=== PATIENT | male | born 1990 | race Caucasian/White ===

== ENCOUNTER 2019-03-02 21:20 | Emergency (ER) | payer SELFPAY ==
[2019-03-02 21:40] VITALS: BP 170/110; PULSE 107; RESP 18; TEMP 36.9; O2SAT 98; BMI 35.6
--- NOTE | 2019-03-02 22:42 | W.ED.SKABFB ---
HPI - Skin/Abscess/Foreign Bdy General: Chief complaint: Skin/Abscess/Foreign Body Stated complaint: Swollen arm Time Seen by Provider: 03/02/19 22:35 Source: patient Mode of arrival: ambulatory Limitations: no limitations History of Present Illness: HPI narrative: Patient comes in today with complaints of redness and swelling to the dorsal left forearm. Patient notes that the area started becoming red and swell about 2 days ago. Patient denies any fever. Patient appears well. Patient appears in mild pain. Patient does report history of IV drug use. Review of Systems General: Reports: 10 or more systems reviewed and unremarkable except in HPI and below Skin/Breast: Reports: redness and skin tenderness PFSH ED PFSH: Statuses (acute, chronic, etc) shown below reflect problem list status as previously entered and may not be historically accurate Social History Smoking and tobacco status: current every day smoker Physical Exam Const: COMMON NORMALS: no apparent distress and oriented x3 GENERAL APPEARANCE: cooperative HENMT: COMMON NORMALS: normocephalic, external ears normal, EAC's normal, TM's normal bilaterally and external nose normal HEAD & SCALP: normal to inspection and normocephalic FACE & SINUS: normal facial exam NOSE: external nose normal GENERAL EAR: hearing not grossly impaired EXTERNAL EAR: Yes external ears normal EXTERNAL AUDITORY CANAL: EAC's normal TYMPANIC MEMBRANE: TM's normal bilaterally MOUTH: oral and palatal mucosa normal THROAT: posterior oropharynx normal Eye: COMMON NORMALS: PERRL and EOMs intact bilaterally PUPIL: Yes PERRL Neck/C-Spine: COMMON NORMALS: full ROM and no lymphadenopathy Lymph: LYMPHATIC: no lymphedema noted Chest: COMMONS NORMALS: inspection of chest normal and palpation of chest normal Resp: COMMON NORMALS: normal respiratory effort and clear to auscultation bilaterally AUSCULTATION: clear to auscultation bilaterally Cardio: COMMON NORMALS: regular rate and regular rhythm RATE: regular rate RHYTHM: regular rhythm GI: COMMON NORMALS: normal to inspection, nondistended, normoactive bowel sounds and non-tender : COMMON NORMALS: Yes no CVA tenderness BLADDER/KIDNEY EXAM: Yes no CVA tenderness Back/Pelvis: COMMON NORMALS: no CVA tenderness and thoracic and lumbar spine normal to inspection Extremity: GENERAL: Yes edema (left forearm) LEFT UPPER EXTREMITY: Yes lower arm (redness and swelling to forearm, no abscess at this time noted) Neuro: COMMON NORMALS: oriented x3, moves all extremities and no focal motor deficits Psych: COMMON NORMALS: mental status grossly normal and cooperative Skin: COMMON NORMALS: no rashes or lesions noted GENERAL SKIN EXAM: no rashes or lesions noted Course Vital Signs: Vital signs: Vital Signs Temperature 98.5 F 03/02/19 21:40 Pulse Rate 107 H 03/02/19 21:40 Respiratory Rate 18 03/02/19 21:40 Blood Pressure 170/110 03/02/19 21:40 Pulse Oximetry 98 03/02/19 21:40 MDM - Skin/Abscess/Foreign Bdy MDM Narrative: Medical decision making narrative: Patient comes in today with complaints of redness and swelling to the left forearm. On exam we note and area of significant redness and tenderness to the left dorsal forearm. Approximately 20 cm x 4 cm ovoid in shape. No central fluctuance is noted. Respirations are even lungs are clear to auscultation. No sign of injury is noted. Differential diagnosis includes cellulitis, abscess, DVT. Since the swelling only encompasses the dorsal aspect of the left forearm and redness with heat is noted to the area seems like cellulitis. At this time no abscess is present but may develop and will need to be monitored. Reviewed with patient recommendations for treatment with antibiotics. Patient will be prescribed oral antibiotics and will be started on medications in the emergency department. Patient reports understanding of care plan and need for follow-up. Discharge Plan Discharge Patient Disposition: Home, Self-Care Clinical Impression: Cellulitis Qualifiers: Site of cellulitis: extremity Site of cellulitis of extremity: upper extremity Laterality: left Qualified Code(s): L03.114 - Cellulitis of left upper limb Condition: Stable Prescriptions: New Bactrim DS 800-160 mg tablet 1 tab PO BID 7 Days Qty: 14 RF: 0 cephalexin 500 mg capsule 500 mg PO Q8H 7 Days Qty: 21 RF: 0 Discharge Orders: Discharge Order (Routine); Ordered 03/02/19 Ordered By: Orestes Whitten Discharge Diet: Usual diet Discharge Activity: Resume usual activity Patient Instructions: Cellulitis (ED) Activity Restrictions/Additional Instructions: Drink plenty of water with medications Acetaminophen and ibuprofen for pain Warm compresses to the area Activity as tolerated Should expect improvement over the next three days Return to ER for high fever or new concerns Coding Level of Care Code ED Senior [employer] Agent for Edith Anne
[2019-03-02] MEDS: cefTRIAXone 1,000 mg SDV 1000 MG IM (23:01)
[2019-03-02] MEDS: clindamycin 150 mg Capsule 300 MG PO (23:07)
[2019-03-02 23:10] VITALS: BP 142/78; PULSE 72; RESP 18; O2SAT 98
== END 2019-03-02 23:15 | disposition home or self-care (01) ==
PROVIDERS: Emergency Provider Nurse Practitioner Family
DX: L03.114 Cellulitis of left upper limb (principal); F17.210 Nicotine dependence, cigarettes, uncomplicated
CPT/HCPCS: 96372; 99281; J0696

== ENCOUNTER 2019-06-13 23:20 | Emergency (ER) | payer SELFPAY ==
[2019-06-13 23:23] VITALS: BP 125/91; PULSE 115; RESP 18; TEMP 36.7; O2SAT 98; BMI 33.6
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
[2019-06-13] MEDS: oxyCODONE-APAP 5-325 mg Tablet 2 TAB PO (23:56)
--- NOTE | 2019-06-14 00:34 | PC.NURSE ---
Knee immobilizer placed left knee per order. Good pulses noted pre and post placement. Teaching complete on home use.
[2019-06-14 00:40] VITALS: BP 126/74; PULSE 88; RESP 16; O2SAT 96
== END 2019-06-14 00:42 | disposition home or self-care (01) ==
PROVIDERS: Emergency Provider Emergency Medicine
DX: S83.412A Sprain of medial collateral ligament of left knee, initial encounter (principal); S00.83XA Contusion of other part of head, initial encounter; Y04.2XXA Assault by strike against or bumped into by another person, initial encounter; F17.210 Nicotine dependence, cigarettes, uncomplicated
CPT/HCPCS: 12345; 29530; 70450; 70486; 72125; 73562; 99281; 99283

== ENCOUNTER 2019-10-14 19:26 | Emergency (ER) | payer SELFPAY ==
[2019-10-14 19:43] VITALS: BP 137/87; PULSE 104; RESP 17; TEMP 36.9; O2SAT 99; BMI 33.5
--- NOTE | 2019-10-14 19:53 | W.ED.GENADLT ---
HPI - General Adult General: Chief complaint: General Medical Stated complaint: shoulder pain/ tingle finger/ throwing up Time Seen by Provider: 10/14/19 19:53 History of Present Illness: HPI narrative: Patient is a 29-year-old male who comes to the ED with right shoulder pain, blood in the urine and nausea/vomiting. Past surgical history of cholecystectomy. Patient said right shoulder pain started about 2 weeks ago and denies any injury or trauma to her right shoulder. He currently rates pain right shoulder a 7 out of 10. Patient also states that today he has had some dark red-tinged color to his urine. He also endorses having nausea, vomiting and decreased appetite for the past 2 days. Patient states that he has also had some white-colored stools for the past couple days as well. Denies any constipation or diarrhea or blood in the stool. Patient denies fever, chills, chest pain, shortness of breath, abdominal pain, dysuria, diarrhea or constipation. Patient did state that he abused alcohol in the past and also has a history of IV drug use. Associated symptoms: Reports nausea and vomiting; Deny chest pain, dyspnea, headache(s), rash or palpitations Review of Systems Const: Reports: change in appetite (decreased appetite); Denies: fever(s), chills or fatigue Eyes: Denies: change in vision or eye discomfort ENMT: Denies: throat pain, odynophagia, nasal discharge or nasal congestion Card: Denies: chest pain, palpitations, edema, swelling of feet/ankles, dyspnea on exertion or orthopnea Resp: Denies: dyspnea, productive cough or non-productive cough GI: Reports: nausea and vomiting; Denies: abdominal pain, diarrhea, constipation or hematochezia : Denies: flank pain, difficulty urinating, dysuria or hematuria Musc: Reports: extremity pain (right shoulder pain); Denies: neck pain, back pain or extremity swelling Skin/Breast: Denies: rash or new lesions Neuro: Denies: headache(s), numbness in extremities or weakness in extremities PFSH ED PFSH: Social History Smoking and tobacco status: current every day smoker Physical Exam Const: COMMON NORMALS: no acute distress, patient oriented x3 and alert GENERAL APPEARANCE: cooperative and comfortable HENMT: COMMON NORMALS: normocephalic HEAD & SCALP: normocephalic MOUTH: Normal oral and palatal mucosa present THROAT: posterior oropharynx normal and uvula midline Eye: COMMON NORMALS: Equal, round and reactive pupils present and conjunctivae normal CONJUNCTIVA: Yes conjunctivae normal PUPIL: Yes Equal, round and reactive pupils present OTHER: Signs of conjunctive icterus. Neck/C-Spine: COMMON NORMALS: supple GENERAL: Yes normal visual inspection Resp: COMMON NORMALS: normal respiratory effort, No retractions, No use of accessory muscles and clear to auscultation bilaterally AUSCULTATION: clear to auscultation bilaterally Cardio: COMMON NORMALS: regular rate, regular rhythm, S1 normal heart sound present, S2 normal heart sound present, No gallops present (Cardio), No clicks present (Cardio), No murmurs present (Cardio) and Peripheral pulses 2+ throughout RATE: regular rate RHYTHM: regular rhythm HEART SOUNDS: S1 normal heart sound present and S2 normal heart sound present PERIPHERAL PULSES: Peripheral pulses 2+ throughout GI: COMMON NORMALS: Normal to inspection, nondistended, normoactive bowel sounds present, Soft to palpation, non-tender and no masses INSPECTION: Yes central obesity PALPATION: Yes Soft to palpation : COMMON NORMALS: Yes no CVA tenderness BLADDER/KIDNEY EXAM: Yes no CVA tenderness Back/Pelvis: COMMON NORMALS: no CVA tenderness Extremity: COMMON NORMALS: normal to inspection, full ROM and no pedal edema NARRATIVE EXTREMITY EXAM: Patient has no visible deformity seen on right shoulder. Right shoulder is nontender upon palpation and he is full range of motion. Neuro: COMMON NORMALS: patient oriented x3 and moves all extremities SENSORIUM/ORIENTATION: Yes alert Skin: COMMON NORMALS: no rashes or lesions noted GENERAL SKIN EXAM: no rashes or lesions noted and dry skin Course Vital Signs: Vital signs: Vital Signs Temperature 98.5 F 10/14/19 19:43 Pulse Rate 90 10/14/19 23:41 Respiratory Rate 18 10/14/19 23:41 Blood Pressure 148/84 10/14/19 23:41 Pulse Oximetry 100 10/14/19 23:41 MDM - General Adult MDM Narrative: Medical decision making narrative: Patient is a 29-year-old male comes the ED with right shoulder pain, and nausea and vomiting. Right shoulder pain is nontraumatic and has progressed over the last 2 weeks. X-ray of right shoulder showed no acute fractures or findings. AST 815, ALT 2334 and alk phos 209. Patient has a history of alcohol abuse and IV drug use. Hepatitis panel was performed and hepatitis a and hepatitis C was reactive. CT of the abdomen showed no acute findings. Patient appears in no acute distress is no abdominal pain no visible signs of jaundice. Order was placed with case management for patient to be referred to Dr. Barros. Patient was discharged and told that case management will be contacting him in the next several days to set up an appointment with Dr. Barros. He was sent home with a prescription for Zofran to help with nausea. Return to ED precautions given. Patient understood and agreed with plan. Lab Data: Attestation: I reviewed the patient's lab results. Labs: Lab Results 10/14/19 10/14/19 10/14/19 Range/Units 20:29 20:29 20:29 WBC 6.3 (4.0-10.0) 10^3/ uL RBC 4.98 (4.1-5.3) 10^6/u L Hgb 14.4 (11.7-16.6) g/dL Hct 44.5 (42.0-52.0) % MCV 89.4 (80-94) fL MCH 28.9 (28.0-34.0) pg MCHC 32.4 (30.0-36.0) g/dL RDW 14.1 (12.1-15.1) % Plt Count 180 (130-400) 10^3/c mm MPV 11.5 H (7.4-10.4) fL Neut % (Auto) 55.9 % Lymph % (Auto) 34.5 % Alexander % (Auto) 5.8 % Eos % (Auto) 3.0 % Baso % (Auto) 0.5 % Neut # (Auto) 3.50 (1.8-7.7) 10^3/u L Lymph # (Auto) 2.2 (0.8-4.8) 10^3/u L Alexander # (Auto) 0.4 (0.2-0.9) 10^3/u L Eos # (Auto) 0.2 (0.0-0.8) 10^3/u L Baso # (Auto) 0.0 (0.0-0.1) 10^3/u L Nucleated RBC % (a uto) 0 % Nucleated RBCs # 0.0 /100WBC Sodium 135 L (136-145) mmol/L Potassium 3.9 (3.5-5.1) mmol/L Chloride 104 (98-107) mmol/L Carbon Dioxide 21 L (22-29) mmol/L Anion Gap 13.9 (5-19) BUN 11 (6-20) mg/dL Creatinine 0.6 L (0.7-1.2) mg/dL GFR Calculation 158.2 H (90-130) mL/min Glucose 147 H (65-115) mg/dL Calculated Osmolal ity 279 L (285-295) mOsm/k g Calcium 8.3 L (8.5-10.5) mg/dL Total Bilirubin 3.1 H (0.15-1.2) mg/dL AST 815 H (0-40) U/L ALT 2334 H (0-41) U/L Alkaline Phosphata se 209 H (40-130) IU/L Total Protein 7.9 (6.6-8.7) g/dL Albumin 3.5 (3.5-5.2) g/dL Globulin 4.4 (1.3-4.6) g/dL Urine Color (Yellow) Urine Appearance (CLEAR) Urine pH (5-7) Ur Specific Gravit y (1.005-1.030) Urine Protein (Negative) Urine Glucose (UA) (Normal) Urine Ketones (Negative) Urine Blood (Negative) Urine Nitrate (Negative) Urine Bilirubin (NEGATIVE) Urine Urobilinogen (Negative) mg/dL Ur Leukocyte Nu ase (Negative) Urine RBC (0-2) /hpf Urine WBC (0-5) /hpf Ur Squamous Epith Cells (0-5) Amorphous Sediment Urine Bacteria (NONE) Urine Mucus Ethyl Alcohol (0-10) mg/dL Hepatitis A IgM Ab Reactive H (Nonreactive) Hep Bs Antigen Non-reactive (Nonreactive) Hep Bs Antibody 3.5 (0-8.5) Hep B Core Total A b Non-reactive (Nonreactive) Hepatitis C Antibo dy Reactive H (Nonreactive) 10/14/19 10/14/19 Range/Units 20:29 20:33 WBC (4.0-10.0) 10^3/ uL RBC (4.1-5.3) 10^6/u L Hgb (11.7-16.6) g/dL Hct (42.0-52.0) % MCV (80-94) fL MCH (28.0-34.0) pg MCHC (30.0-36.0) g/dL RDW (12.1-15.1) % Plt Count (130-400) 10^3/c mm MPV (7.4-10.4) fL Neut % (Auto) % Lymph % (Auto) % Alexander % (Auto) % Eos % (Auto) % Baso % (Auto) % Neut # (Auto) (1.8-7.7) 10^3/u L Lymph # (Auto) (0.8-4.8) 10^3/u L Alexander # (Auto) (0.2-0.9) 10^3/u L Eos # (Auto) (0.0-0.8) 10^3/u L Baso # (Auto) (0.0-0.1) 10^3/u L Nucleated RBC % (a uto) % Nucleated RBCs # /100WBC Sodium (136-145) mmol/L Potassium (3.5-5.1) mmol/L Chloride (98-107) mmol/L Carbon Dioxide (22-29) mmol/L Anion Gap (5-19) BUN (6-20) mg/dL Creatinine (0.7-1.2) mg/dL GFR Calculation (90-130) mL/min Glucose (65-115) mg/dL Calculated Osmolal ity (285-295) mOsm/k g Calcium (8.5-10.5) mg/dL Total Bilirubin (0.15-1.2) mg/dL AST (0-40) U/L ALT (0-41) U/L Alkaline Phosphata se (40-130) IU/L Total Protein (6.6-8.7) g/dL Albumin (3.5-5.2) g/dL Globulin (1.3-4.6) g/dL Urine Color Dark yellow (Yellow) Urine Appearance Clear (CLEAR) Urine pH 5 (5-7) Ur Specific Gravit y 1.025 (1.005-1.030) Urine Protein Trace (Negative) Urine Glucose (UA) Norm (Normal) Urine Ketones Negative (Negative) Urine Blood Trace H (Negative) Urine Nitrate Negative (Negative) Urine Bilirubin 2+ H (NEGATIVE) Urine Urobilinogen 4 H (Negative) mg/dL Ur Leukocyte Nu ase Negative (Negative) Urine RBC Rare (0-2) /hpf Urine WBC 0-4 H (0-5) /hpf Ur Squamous Epith Cells 0-4 H (0-5) Amorphous Sediment Not Reportable Urine Bacteria 1+ H (NONE) Urine Mucus 2+ Ethyl Alcohol < 10 (0-10) mg/dL Hepatitis A IgM Ab (Nonreactive) Hep Bs Antigen (Nonreactive) Hep Bs Antibody (0-8.5) Hep B Core Total A b (Nonreactive) Hepatitis C Antibo dy (Nonreactive) Imaging Data^: Xray Ortho: Attestation: I personally reviewed and interpreted this imaging study as follows: My impression: Right shoulder x-ray?no acute fractures or findings. CT Abd/Pel: Attestation: I personally reviewed and interpreted this imaging study as follows: Radiologist's impression: [place] [address] CT Scan Report Signed Patient: Denzel Olivares Unit #: [id number] : 1990 Age/Sex: 29 / M ADM Date: 10/14/19 Loc: ER Room/Bed: Attending Dr: Ordering Provider/Ordering MD: Devyn Dong Date of Service: 10/14/19 Procedure(s): CT abdomen pelvis w con* [id number] Accession Number(s): [id number] Report Number: [id number] PROCEDURE INFORMATION: Exam: CT Abdomen And Pelvis With Contrast Exam date and time: 10/14/2019 9:29 PM Age: 29 years old Clinical indication: Nausea and vomiting; Prior surgery; Surgery type: Gb TECHNIQUE: Imaging protocol: Computed tomography of the abdomen and pelvis with intravenous contrast. Radiation optimization: All CT scans at this facility use at least one of these dose optimization techniques: automated exposure control; mA and/or kV adjustment per patient size (includes targeted exams where dose is matched to clinical indication); or iterative reconstruction. Contrast material: OMNI 300; Contrast volume: 95 ml; Contrast route: INTRAVENOUS (IV); COMPARISON: US gall bladder [id number] 04/07/2015 10:23 AM RADIATION DOSE METRICS: Total DLP (mGy-cm): 1751.53 FINDINGS: Liver: There is no focal abnormality within the liver. Gallbladder and bile ducts: There has been a cholecystectomy. Pancreas: The pancreas is normal. Spleen: The spleen is normal. Adrenals: The adrenal glands are normal. Kidneys and ureters: The kidneys are normal. There is no evidence of renal or ureteral calcifications. There is no evidence of hydronephrosis. Stomach and bowel: There is no evidence of colitis/diverticulitis. There is no evidence of intestinal obstruction. Appendix: A normal appendix is identified. Intraperitoneal space: There is no evidence of free intraperitoneal fluid. Vasculature: Unremarkable. No abdominal aortic aneurysm. Lymph nodes: Unremarkable. No enlarged lymph nodes. Bladder: Unremarkable as visualized. Reproductive: Unremarkable as visualized. Bones/joints: There is narrowing of the L5-S1 disc space and bilateral L5 spondylolysis with minimal spondylolisthesis. Soft tissues: Unremarkable. CT/CT abdomen pelvis w con* [id number] IMPRESSION: No acute finding. Radiation Dose CTDIVOL = (mGy): DLP = 1751.53 (mGy-cm) Dictated By: Dhruv Lerma Signed By: Dhruv Lerma Signed Date/Time: 10/14/192250 DD/ 49 Discharge Plan Discharge Patient Disposition: Home Clinical Impression: Hepatitis C antibody positive in blood Hepatitis A Qualifiers: Hepatic coma status: without hepatic coma Qualified Code(s): B15.9 - Hepatitis A without hepatic coma Condition: Stable Prescriptions: New Zofran 4 mg tablet 4 mg PO Q8H Qty: 20 RF: 0 No Action ibuprofen 200 mg Tablet 200 mg PO Q6H PRN (Reason: PAIN/FEVER) RF: 0 Discharge Orders: Discharge Order (Routine); Ordered 10/14/19 Ordered By: Devyn Dong Discharge Diet: Advance as tolerated Discharge Activity: Increase activity as tolerated Patient Instructions: Hepatitis A, Hepatitis C Activity Restrictions/Additional Instructions: Follow-up with medical provider as directed. Case management should be contacting you in the next several days to set up an appointment with Dr. Barros. Take Zofran as needed for any nausea vomiting. Start with a clear liquid diet then slowly advance it as tolerated. Return to the ER or your medical provider if condition worsens. Please read and understand discharge instructions. If any questions, please ask. Discharge Date/Time: 10/14/19 23:42 Coding Level of Care Code ED Resident Care Aide for Edith Fwd Exam Comprehensive
--- NOTE | 2019-10-14 20:04 | XR_ITS ---
WS: [id number] Right shoulder, 3 views, 10/14/2019 Clinical Data: right shoulder pain Comparison: None. Findings: No fractures or dislocations are seen. The AC joint is normal. The adjacent right clavicle, right sca pula and ribs are normal. The soft tissues are unremarkable. XR/XR shoulder RT min 2V* [id number] Impression: Negative right shoulder.
[2019-10-14] MEDS: ketorolac 60 mg/2 mL INJ IM (20:30)
[2019-10-14 20:32] VITALS: BP 115/76; PULSE 86; RESP 16; O2SAT 95
[2019-10-14 20:44] LABS: Basophils % 0.5 %; Eosinophils # 0.2 10^3/uL (0.0-0.8); Hematocrit 44.5 % (42.0-52.0); Hemoglobin 14.4 g/dL (11.7-16.6); Lymphocytes # 2.2 10^3/uL (0.8-4.8); Lymphocytes % 34.5 %; Mean Corpuscular HGB Conc 32.4 g/dL (30.0-36.0); Mean Corpuscular Hemoglobin 28.9 pg (28.0-34.0); Mean Corpuscular Volume 89.4 fL (80-94); Mean Platelet Volume 11.5 fL (7.4-10.4); Monocytes # 0.4 10^3/uL (0.2-0.9); Monocytes % 5.8 %; Neutrophils % 55.9 %; Nucleated Red Blood Cells % 0 %; Platelet Count 180 10^3/cmm (130-400); Red Blood Count 4.98 10^6/uL (4.1-5.3); Red Cell Distribution Width 14.1 % (12.1-15.1); White Blood Count 6.3 10^3/uL (4.0-10.0)
[2019-10-14 21:11] LABS: Albumin Level 3.5 g/dL (3.5-5.2); Alkaline Phosphatase 209 IU/L (40-130); Anion Gap 13.9 (5-19); Blood Urea Nitrogen 11 mg/dL (6-20); Calcium 8.3 mg/dL (8.5-10.5); Carbon Dioxide 21 mmol/L (22-29); Chloride 104 mmol/L (98-107); Globulin 4.4 g/dL (1.3-4.6); Glomerular Filtration Rate 158.2 mL/min (90-130); Glucose 147 mg/dL (65-115); Osmolality Calculated 279 mOsm/kg (285-295); Potassium 3.9 mmol/L (3.5-5.1); Sodium 135 mmol/L (136-145); Total Bilirubin 3.1 mg/dL (0.15-1.2); Total Protein 7.9 g/dL (6.6-8.7)
[2019-10-14 21:16] LABS: Slide Review Slide Review Perform
[2019-10-14 21:17] LABS: Specific Gravity, Urine 1.025 (1.005-1.030); Urine Appearance Clear (CLEAR); Urine Color Dark Yellow (Yellow); pH Urine 5 (5-7)
[2019-10-14 21:18] LABS: Add Urine Microscopic? YES; Bacteria Urine 1+; Bilirubin Urine 2+ (NEGATIVE); Blood Urine Trace (Negative); Glucose Urine UA Norm (Normal); Ketones Urine Negative (Negative); Leukocyte Esterase Urine Negative (Negative); Mucus Urine 2+; Nitrate Urine Negative (Negative); Protein Urine Trace (Negative); RBC Urine RARE /hpf (0-2); Squamous Epithelial Cell Urine 0-4 (0-5); Urobilinogen Urine 4 mg/dL (Negative); WBC Urine 0-4 /hpf (0-5)
[2019-10-14 21:22] LABS: Alanine Aminotransferase 2334 U/L (0-41)
[2019-10-14 21:24] LABS: Aspartate Amino Transferase 815 U/L (0-40)
--- NOTE | 2019-10-14 21:26 | CTR_ITS ---
PROCEDURE INFORMATION: Exam: CT Abdomen And Pelvis With Contrast Exam date and time: 10/14/2019 9:29 PM Age: 29 years old Clinical indication: Nausea and vomiting; Prior surgery; Surgery type: Gb TECHNIQUE: Imaging protocol: Computed tomography of the abdomen and pelvis with intravenous contrast. Radiation optimization: All CT scans at this facility use at least one of these dose optimization techniques: automated exposure control; mA and/or kV adjustment per patient size (includes targeted exams where dose is matched to clinical indication); or iterative reconstruction. Contrast material: OMNI 300; Contrast volume: 95 ml; Contrast route: INTRAVENOUS (IV); COMPARISON: US gall bladder [id number] 04/07/2015 10:23 AM RADIATION DOSE METRICS: Total DLP (mGy-cm): 1751.53 FINDINGS: Liver: There is no focal abnormality within the liver. Gallbladder and bile ducts: There has been a cholecystectomy. Pancreas: The pancreas is normal. Spleen: The spleen is normal. Adrenals: The adrenal glands are normal. Kidneys and ureters: The kidneys are normal. There is no evidence of renal or ureteral calcifications. There is no evidence of hydronephrosis. Stomach and bowel: There is no evidence of colitis/diverticulitis. There is no evidence of intestinal obstruction. Appendix: A normal appendix is identified. Intraperitoneal space: There is no evidence of free intraperitoneal fluid. Vasculature: Unremarkable. No abdominal aortic aneurysm. Lymph nodes: Unremarkable. No enlarged lymph nodes. Bladder: Unremarkable as visualized. Reproductive: Unremarkable as visualized. Bones/joints: There is narrowing of the L5-S1 disc space and bilateral L5 spondylolysis with minimal spondylolisthesis. Soft tissues: Unremarkable. CT/CT abdomen pelvis w con* [id number] IMPRESSION: No acute finding. Radiation Dose CTDIVOL = (mGy): DLP = 1751.53 (mGy-cm)
[2019-10-14 22:07] LABS: Alcohol Level < 10 mg/dL (0-10)
[2019-10-14] MEDS: sodium chloride 0.9% 1,000 ML 999 ML IV (22:13)
[2019-10-14 22:23] VITALS: BP 140/82; PULSE 80; RESP 16; O2SAT 98
[2019-10-14 22:27] LABS: Hepatitis A Antibody IgM Reactive (Nonreactive); Hepatitis B Core AB, Total Non-Reactive (Nonreactive); Hepatitis B Surface AB 3.5 (0-8.5); Hepatitis B Surface Antigen Non-Reactive (Nonreactive); Hepatitis C Virus Antibody Reactive (Nonreactive)
[2019-10-14] MEDS: iohexol 300 mg/mL 100 mL Btl IV (22:31)
[2019-10-14 23:41] VITALS: BP 148/84; PULSE 90; RESP 18; O2SAT 100
--- NOTE | 2019-10-16 13:33 | DCPLANNER ---
Patient needed a follow up appointment with Dr. Barros. The office of Dr. Barros was called, patients information was given, a follow up appointment was scheduled for Saturday, October 28, 2019 at 3:[address] Barros. employee relation manager called patient and informed patient of the scheduled appointment.
--- NOTE | 2019-11-11 12:20 | DCPLANNER ---
Patients appointment scheduled for 10.28.[address] Barros was cancelled.
== END 2019-10-14 23:42 | disposition home or self-care (01) ==
PROVIDERS: Emergency Provider Physician Assistant
DX: B15.9 Hepatitis A without hepatic coma (principal); F17.210 Nicotine dependence, cigarettes, uncomplicated
CPT/HCPCS: 12345; 36415; 73030; 74177; 80053; 80307; 81001; 85025; 86705; 86706; 86709; 86803; 87340; 96361; 96372; 96374; 96375; 99282; 99283; J1885; J7030; Q9967

== ENCOUNTER 2021-06-06 18:47 | Emergency (ER) | payer SELFPAY ==
[2021-06-06 18:59] VITALS: BP 148/80; PULSE 91; RESP 20; TEMP 36.7; O2SAT 98; BMI 34.2
--- NOTE | 2021-06-06 19:13 | W.ED.EYEPROB ---
HPI - Eye Problem General: Chief complaint: Eye Problems Stated complaint: Something in Left Eye Time Seen by Provider: 06/06/21 18:51 Source: patient Mode of arrival: ambulatory Limitations: no limitations History of Present Illness: Patient is a 30-year-old male who presents to ED today with complaint of a foreign body sensation to his left eye. Patient states he was mowing the yard today as well as sanding and states at some point he felt something flick into his eye. Patient states he has tried irrigation without much relief. No visual changes. No drainage/discharge. Tetanus is not up-to-date. chief complaint: eye pain and foreign body Onset (ago): hour(s) Onset description: sudden Duration: constant Location: left eye Eye Symptoms: foreign body sensation Place: home Mechanism: other (mowing grass, sanding) Severity: mild Associated symptoms: Reports no associated symptoms Treatments Prior to Arrival: none and irrigated eye Related Data: Patient tetanus UTD: No Review of Systems Eyes: Reports: eye discomfort and other (fb sensation); Denies: change in vision, blurry vision, blind spots, photophobia, eye discharge, eye redness, floaters or seeing flashes PFS ED PFSH: Social History Smoking and tobacco status: current every day smoker Physical Exam Const: COMMON NORMALS: no acute distress, patient oriented x3, no limitations and alert Eye: COMMON NORMALS: Equal, round and reactive pupils present, EOMs intact bilaterally and no scleral icterus GENERAL EYE: normal light reflex VISUAL ACUITY: Yes acuity normal ALIGNMENT: Yes alignment normal PERIORBITAL: periorbital findings normal EYELID: eyelids normal CONJUNCTIVA: Yes conjunctival abnormal (mild left injection) SCLERA: sclerae normal CORNEA: Yes corneas normal (on visual inspection) and fluorescein used (abrasion to superior aspect noted during fluorescein exam) PUPIL: Yes Equal, round and reactive pupils present DIRECT OPHTHALMOSCOPY: Yes normal light reflex EYE IMAGES: 1. corneal abrasion Neuro: COMMON NORMALS: patient oriented x3 SENSORIUM/ORIENTATION: Yes alert Course Vital Signs: Vital signs: Vital Signs Temperature 98.0 F 06/06/21 18:59 Pulse Rate 91 06/06/21 18:59 Respiratory Rate 20 H 06/06/21 18:59 Blood Pressure 148/80 06/06/21 18:59 Pulse Oximetry 98 06/06/21 18:59 MDM - Eye Problem Medical Decision Making Patient has a corneal abrasion to the superior aspect of his left cornea. No foreign bodies visualized. No globe injury. Patient is not having any visual changes. Patient was given IM tetanus and will place on erythromycin ointment. Return to ED precautions given. Discharge Plan Discharge Patient Disposition: Home Clinical Impression: Abrasion of left cornea Qualifiers: Encounter type: initial encounter Qualified Code(s): S05.02XA - Injury of conjunctiva and corneal abrasion without foreign body, left eye, initial encounter Condition: Stable Prescriptions: New erythromycin 5 mg/gram (0.5 %) ointment 1 applic ophthalmic (eye) Q4H 7 Days Qty: 1 0RF No Action ibuprofen 200 mg Tablet 200 mg PO Q6H PRN (Reason: PAIN/FEVER) 0RF Zofran 4 mg tablet 4 mg PO Q8H Qty: 20 0RF Discharge Orders: Discharge ED (Routine); Ordered 06/06/21 Ordered By: Vickie Beltre Patient Instructions: Corneal Abrasion (DC) Coding Level of Care Code ED Accounts Receivable Accountant for Cristineg Dayana
[2021-06-06] MEDS: fluorescein 1 mg Strip EYE-LEFT (19:34)
[2021-06-06] MEDS: tetracaine 0.5% Op Soln 4 mL Btl 1 DROP EYE-LEFT (19:34)
[2021-06-06] MEDS: eye irrigation 30 mL Btl EYE-LEFT (19:34)
[2021-06-06] MEDS: erythromycin Op Oint 1 gm 1 APPLIC EYE-LEFT (20:21)
[2021-06-06] MEDS: tetanus-diphtheria tox (adult) 0.5 mL SDV IM (20:21)
== END 2021-06-06 20:25 | disposition home or self-care (01) ==
PROVIDERS: Emergency Provider Physician Assistant
DX: S05.02XA Injury of conjunctiva and corneal abrasion without foreign body, left eye, initial encounter (principal); X58.XXXA Exposure to other specified factors, initial encounter; Z23 Encounter for immunization; F17.210 Nicotine dependence, cigarettes, uncomplicated
CPT/HCPCS: 90471; 90714; 99283

== ENCOUNTER 2021-06-29 15:06 | Emergency (ER) | payer SELFPAY ==
[2021-06-29 15:16] VITALS: BP 143/78; PULSE 86; RESP 16; TEMP 36.6; O2SAT 98
--- NOTE | 2021-06-29 15:56 | W.ED.SKABFB ---
HPI - Skin/Abscess/Foreign Bdy General: Chief complaint: Skin/Abscess/Foreign Body Stated complaint: spider bite on side of right knee Time Seen by Provider: 06/29/21 15:23 History of Present Illness: 30-year-old male patient presents to the emergency department with what he feels like is a spider bite on his right knee. Patient states he has had these spots for and is worried that it is a staph infection. Patient denies any fever. Patient denies any systemic symptoms of illness. Patient states he also has gotten into poison gabriela and has a poison gabriela rash to his left lower extremity. Patient denies any chest pain or shortness of breath. Patient denies any other complaints or symptoms. Associated symptoms: Deny chills, fever(s), nausea or vomiting Review of Systems Const: Denies: fever(s), chills, body aches, change in appetite, change in weight, fatigue, malaise or diaphoresis Eyes: Denies: change in vision, blurry vision, blind spots, photophobia, eye discomfort, eye discharge, eye redness, floaters or seeing flashes ENMT: Denies: throat pain, uvular edema, enlarged tonsils, odynophagia, hoarseness, mouth pain, swelling of lips/tongue, oral sores, bleeding gums, dental pain, dry mouth, ear or mastoid pain, ear discharge, change in hearing, tinnitus, disequilibrium, nasal discharge, nasal congestion, post nasal drip or sinus pain Card: Denies: chest pain, palpitations, irregular heart rhythm, edema, swelling of feet/ankles, lightheadedness, syncope, pre-syncope, dyspnea on exertion, orthopnea, leg pain with exertion or acrocyanosis Resp: Denies: dyspnea, productive cough, non-productive cough, wheezing, stridor, pain on inspiration, change in phlegm color, hemoptysis or chest congestion GI: Denies: abdominal pain, nausea, vomiting, hematemesis, dysphagia, diarrhea, constipation, GI cramping, change in bowel habits or rectal pain : Denies: flank pain, dysuria, urinary frequency, urinary urgency, urinary hesitancy or hematuria Musc: Denies: neck pain, back pain, extremity pain, extremity swelling, joint pain, joint swelling, joint redness, joint warmth or deformity Skin/Breast: Denies: pruritus, erythema, sores, new lesions, changes in skin color or dry skin Neuro: Denies: headache(s), numbness in extremities, weakness in extremities, sensory changes, lack of coordination, difficulty walking, frequent falls, dizziness, vertigo, confusion, behavioral changes, Slurred speech present, difficulty communicating thoughts or seizure-like activity Psych: Denies: anxiety, depression, suicidal ideation or homicidal ideation Endo: Denies: polyuria, polydipsia, tired all the time, cold intolerance, excessive sweating, flushing, hot flashes or heat intolerance Jai/Lymph: Denies: easy bruising, easy bleeding, petechiae, purpura, enlarged lymph nodes or tender lymph nodes All/Imm: Denies: urticaria, throat swelling, tongue swelling, facial swelling, acute wheezing or itchy eyes PFSH ED PFSH: Social History Smoking and tobacco status: current every day smoker Physical Exam Const: COMMON NORMALS: no acute distress, average body habitus, patient oriented x3, no limitations, healthy appearing, alert and well nourished HENMT: THROAT: no uvular edema Eye: COMMON NORMALS: Equal, round and reactive pupils present, EOMs intact bilaterally, conjunctivae normal and no scleral icterus CONJUNCTIVA: Yes conjunctivae normal PUPIL: Yes Equal, round and reactive pupils present Neuro: COMMON NORMALS: patient oriented x3 SENSORIUM/ORIENTATION: Yes alert Skin: RASHES: rashes noted (right knee c/w cellulitis) Course Vital Signs: Vital signs: Vital Signs Temperature 97.9 F 06/29/21 15:16 Pulse Rate 86 06/29/21 15:16 Respiratory Rate 16 06/29/21 15:16 Blood Pressure 143/78 06/29/21 15:16 Pulse Oximetry 98 06/29/21 15:16 MDM - Skin/Abscess/Foreign Bdy Medicial Decision Making Patient is well-appearing nontoxic and in no acute distress. 30-year-old male patient presents to the emergency department with what he feels like is a spider bite on his right knee. Patient states he has had these spots for and is worried that it is a staph infection. Patient denies any fever. Patient denies any systemic symptoms of illness. Patient states he also has gotten into poison gabriela and has a poison gabriela rash to his left lower extremity. Patient denies any chest pain or shortness of breath. Patient denies any other complaints or symptoms. Given patient's history of MRSA I will go ahead and start him on Bactrim and Keflex at this time I will also prescribe him a topical steroid cream for his concerns for poison gabriela Discharge Plan Discharge Patient Disposition: Home Clinical Impression: Cellulitis, Contact dermatitis Condition: Stable Prescriptions: New Bactrim DS 800-160 mg tablet 1 tab PO BID 7 Days Qty: 14 0RF cephalexin 500 mg capsule 500 mg PO QID 7 Days Qty: 28 0RF triamcinolone acetonide 0.1 % cream 1 applic topical TID 10 Days Qty: 30 0RF No Action ibuprofen 200 mg Tablet 200 mg PO Q6H PRN (Reason: PAIN/FEVER) 0RF Zofran 4 mg tablet 4 mg PO Q8H Qty: 20 0RF Discharge Orders: Discharge ED (Routine); Ordered 06/29/21 Ordered By: Ellen Adkins Discharge Diet: Advance as tolerated Discharge Activity: Resume usual activity Patient Instructions: Opioid Safety Activity Restrictions/Additional Instructions: Use medications as pescribed Warm compressess to area on leg Return to ER with any worsening of symptoms Coding Level of Care Code ED Certified Personal [employer] for [facility]
== END 2021-06-29 16:12 | disposition home or self-care (01) ==
PROVIDERS: Emergency Provider Registered Nurse
DX: L25.9 Unspecified contact dermatitis, unspecified cause (principal); F17.200 Nicotine dependence, unspecified, uncomplicated
CPT/HCPCS: 99283

== ENCOUNTER 2021-10-29 15:34 | Emergency (ER) | payer SELFPAY ==
[2021-10-29 15:40] VITALS: BP 149/78; PULSE 85; RESP 14; TEMP 36.2; O2SAT 98; BMI 33.6
--- NOTE | 2021-10-29 15:47 | ED_ITS ---
HPI - Eye Problem General: Chief complaint: Eye Problems Stated complaint: eye problems Time Seen by Provider: 10/29/21 15:43 History of Present Illness: 31-year-old male comes in today for complaints of bilateral irritation and redness to the eyes. Patient reports noticing it about 3 days ago with worsening symptoms over the last 24 to 48 hours. Patient did report that about 5 days ago he was walking into a shed when he accidentally got stuck in the eye by a branch in the left eye but it was okay until the redness started in the right eye. Review of Systems Eyes: Reports: eye discomfort and eye redness [facility] ED PFSH: Social History Smoking and tobacco status: current every day smoker Physical Exam Const: COMMON NORMALS: patient oriented x3 HENMT: COMMON NORMALS: normocephalic HEAD & SCALP: normocephalic Eye: EYELID: eyelid abnormality right upper eyelid erythema and swelling and left upper eyelid erythema and swelling CONJUNCTIVA: Yes conjunctival abnormal positive bilateral conjunctival injection Resp: COMMON NORMALS: normal respiratory effort and clear to auscultation bilaterally AUSCULTATION: clear to auscultation bilaterally Cardio: COMMON NORMALS: regular rate RATE: regular rate Extremity: COMMON NORMALS: normal to inspection Neuro: COMMON NORMALS: patient oriented x3 Course Vital Signs: Vital signs: Vital Signs Temperature 97.2 F L 10/29/21 15:40 Pulse Rate 85 10/29/21 15:40 Respiratory Rate 14 10/29/21 15:40 Blood Pressure 149/78 10/29/21 15:40 Pulse Oximetry 98 10/29/21 15:40 Oxygen Delivery Me thod 10/29/21 15:40 MDM - Eye Problem Medical Decision Making 31-year-old male comes in today for complaints of swelling and redness to bilateral eyelids. On exam patient appears nontoxic. Patient does have tenderness to bilateral eyelids mainly in the medial aspect of the upper eyelids. Vital signs are unremarkable. Differential diagnosis includes conjunctivitis, hordeolum stye, periorbital cellulitis. Patient had mentioned a injury to the left eyelid where he got a scratch from a limb hit him in the eyelid prior to the development of the erythema. Patient may just have a stye but it may also be cellulitis of the periorbital region of the eye. We will start patient on Augmentin 875 twice a day for 7 days. Patient be covered with antibiotic eyedrops for the inflammation and swelling of the eyelids. Patient reported understanding of care plan need for follow-up or return to the ER. Discharge Plan Discharge Patient Disposition: Home Clinical Impression: Periorbital cellulitis Condition: Stable Prescriptions: New amoxicillin-pot clavulanate 875-125 mg tablet 1 tab PO BID Qty: 14 0RF No Action ibuprofen 200 mg Tablet 200 mg PO Q6H PRN (Reason: PAIN/FEVER) Zofran 4 mg tablet 4 mg PO Q8H Qty: 20 0RF Discharge Orders: Discharge ED (Routine); Ordered 10/29/21 Ordered By: Orestes Whitten Discharge Diet: Usual diet Discharge Activity: Increase activity as tolerated Patient Instructions: Conjunctivitis (ED) Activity Restrictions/Additional Instructions: Use eyedrops 2 drops to both eyes 4 times a day for the next 7 days. You should notice improvement of the eyes within 3 days. Take oral antibiotics 1 tablet twice a day for 7 days. If no improvement is noted you need to follow-up with primary care or your eye in home caregiver for further evaluation and treatment. Return to ER for new concerns. Coding Level of Care Code ED Director [employer] for [facility] Exam Expanded Problem Focused
[2021-10-29] MEDS: neomycin-poly-dex Op 5 mL Btl 2 DROP EYE-BOTH (16:18)
[2021-10-29] MEDS: amoxicillin-clav 875-125 mg Tablet 1 TAB PO (16:18)
== END 2021-10-29 16:19 | disposition home or self-care (01) ==
PROVIDERS: Emergency Provider Nurse Practitioner Family
DX: L03.213 Periorbital cellulitis (principal); F17.210 Nicotine dependence, cigarettes, uncomplicated
CPT/HCPCS: 99283